=== PATIENT | female | born 1945 | race Caucasian/White ===

== ENCOUNTER 2017-02-22 11:56 | Day surgery (SDC) | payer MEDICARE, OTHER ==
[2017-02-18 16:23] LABS: HEMATOCRIT 44.4 % (36.0-48.0); HEMOGLOBIN 14.4 g/dL (12.0-16.0)
--- NOTE | ~2017-02-22 | OP ---
Record Of Operation [facility] [address] [place]. [address] NAME: SUMMER MONTOYA : 49 STATUS : [facility]#: [id number] AGE: 71 ADM/REG DATE : 02/22/17 MR#: [id number] REPORT SERV DATE: 02/22/17 DICTATED BY: GUS RAMSEY DATE: 02/22/17 REPORT STATUS : Draft TRANSCRIBED BY: ALESSANDRA DATE: 02/22/17 DATE OF PROCEDURE: 02/22/2017 PREOPERATIVE DIAGNOSIS: Dysphagia with cricopharyngeal achalasia. PROCEDURE: Microdirect laryngoscopy with Botox injection into the cricopharyngeus muscle. SURGEON: Gus Ramsey M.D. ANESTHESIA: General endotracheal tube. ESTIMATED BLOOD LOSS: 2 mL. INTRAOPERATIVE FLUIDS: 600 mL. INTRAOPERATIVE FINDINGS: Prominent cricopharyngeal bar with moderate to extensive acid reflux. OPERATIVE PROCEDURE: The patient was identified in the holding room, transported to the operating room. In the operating room, the patient was placed on the operating table in the supine position. Following induction of anesthesia, the patient was intubated without difficulty. The table was turned 90 degrees for the operative procedure. A Dedo laryngoscope was inserted. The scope was positioned for visualization of the cricopharyngeal bar. There was a tremendous amount of acid reflux refluxing into the hypopharynx. This was evacuated with suction. The patient did have a relatively patulous esophagus with reflux accumulating distally within the esophagus. The microscope was positioned for injection into the cricopharyngeus muscle. The botulinum toxin was reconstituted with a concentration of 20 units/mL. 1 mL of solution was injected into the lateral aspect of the cricopharyngeal bar, bilaterally, as well as the central portion, with a resulting injection of 60 units. There was no significant bleeding present at the injection site. The Dedo laryngoscope was removed. The table was returned to its original position and the patient was awakened from anesthesia. The patient was extubated in the operating room and transported to recovery room in good condition. The patient tolerated the procedure well. There were no apparent complications. SUNITHA/ALESSANDRA Gus Ramsey M.D. / [id number] CC: Gus Ramsey M.D. Record Of Operation [address] [address] NAME: SUMMER MONTOYA : 49 STATUS : [facility] PAT#: [id number] AGE: 71 ADM/REG DATE : 02/22/17 MR#: [id number] REPORT SERV DATE: 02/22/17 DICTATED BY: GUS RAMSEY DATE: 02/22/17 REPORT STATUS : Draft TRANSCRIBED BY: MODL DATE: 02/22/17 Marcelle Sandy M.D.
[~2017-02-22 11:56] MED LIST: ADDERALL15 MG PO; B121000P IM; BIOTIN5 MG PO; CIP5 PO; CYMBALTA60 PO; ESTRACE0.5 MG PO; IMITREX100 MG PO; JUICE PLUS PO; KLONO2 PO; NEXIUM40 PO; NORCO1 TA2 PO; PRENAVITE PO; SYMAX-SL0.125 MG SL; TOPAMAX100 PO; VITAMIN C100 MG PO; VITAMIN D1000 UNI1 PO; [UNRECOGNIZED DRUG - CODE] TOP
== END 2017-02-22 17:55 | disposition home or self-care (01) ==
LOC: SDC 11:56
PROVIDERS: Otolaryngology
PROC: 3E0F8GC Introduction of Other Therapeutic Substance into Respiratory Tract, Via Natural or Artificial Opening Endoscopic (ICD-10-PCS; 2017-02-22)
PROC: 3E0F8GC Introduction of Other Therapeutic Substance into Respiratory Tract, Via Natural or Artificial Opening Endoscopic (ICD-10-PCS; principal; 2017-02-22 13:15)
DX: K22.0 Achalasia of cardia (principal); R13.10 Dysphagia, unspecified; T75.3XXA Motion sickness, initial encounter; K21.9 Gastro-esophageal reflux disease without esophagitis; G43.909 Migraine, unspecified, not intractable, without status migrainosus; D64.9 Anemia, unspecified; N60.09 Solitary cyst of unspecified breast; N83.209 Unspecified ovarian cyst, unspecified side; K57.90 Diverticulosis of intestine, part unspecified, without perforation or abscess without bleeding; M19.90 Unspecified osteoarthritis, unspecified site; K22.70 Barrett's esophagus without dysplasia; G25.81 Restless legs syndrome; Z91.040 Latex allergy status; Z98.41 Cataract extraction status, right eye; Z98.42 Cataract extraction status, left eye; Z96.1 Presence of intraocular lens; Z90.710 Acquired absence of both cervix and uterus; Z98.84 Bariatric surgery status; Z90.49 Acquired absence of other specified parts of digestive tract; Z88.8 Allergy status to other drugs, medicaments and biological substances; Z88.1 Allergy status to other antibiotic agents
CPT/HCPCS: 85014; 85018; 93005; A9270-GY; J0585; J2250; J2405; J2710; J3010

== ENCOUNTER 2017-03-01 08:57 | Emergency (ER) | payer MEDICARE, OTHER ==
[2017-03-01 09:15] LABS: BASOPHILS 0.6 %; BASOPHILS ABSOLUTE 0.04 10/3/uL (0.0-0.16); EOSINOPHILS 4.2 %; EOSINOPHILS ABSOLUTE 0.29 10/3/uL (0.0-0.53); ER CBC TAT 0 Hrs 06 MinsNP; HEMATOCRIT 39.3 % (36.0-48.0); HEMOGLOBIN 13.2 g/dL (12.0-16.0); IMMATURE GRANULOCYTES 0.1 %; IMMATURE GRANULOCYTES ABSOLUTE 0.01 10/3/uL (0.0-0.11); LYMPHOCYTES 35.2 %; LYMPHOCYTES ABSOLUTE 2.45 10/3/uL (0.67-4.30); MANUAL DIFF NO %; MEAN CORPUS HGB CONC 33.6 g/dL (32.0-36.0); MEAN CORPUSCULAR HEMOGLOB 33.2 pg (26.0-34.0); MEAN PLATELET VOLUME 9.6 fL (9.2-13.0); MONOCYTES 11.1 %; MONOCYTES ABSOLUTE 0.77 10/3/uL (0.21-1.20); NEUTROPHILS 48.8 %; PLATELET COUNT 169 10/3/uL (150-400); RBC DISTRIBUTION WIDTH 13.1 % (12.0-16.0); RED CELL COUNT 3.97 10/6/uL (4.0-5.6)
[2017-03-01 09:20] LABS: PARTIAL THROMBO TIME 33.4 SEC (22.5-37.2); PROTIME (NOT ORD) 13.3 SEC (12.0-14.5)
[2017-03-01 09:24] LABS: ASCORBIC ACID (UR NOT ORDER) NEG (NEG); BILIRUBIN, URINE NEGATIVE (NEG); KETONE, URINE NEGATIVE (NEG); LEUKOCYTE ESTERASE(NOT OR TRACE (NEG); NITRITE (URINE) POS (NEG); WBC (NOT ORDERED) (RFLEX) 10 (0-5)
[2017-03-01 09:25] LABS: ER URINALYSIS TAT 0 Hrs 36 Mins
[2017-03-01 09:30] LABS: A/G RATIO 1.2 (0.7-1.9); ACETAMINOPHEN LEVEL (TYLENOL) 8.8 MCG/ML (10.0-20.0); ALBUMIN 3.8 G/DL (3.5-5.0); ALKALINE PHOSPHATASE 102 U/L (45-117); CALCIUM, SERUM 8.8 MG/DL (8.5-10.4); CHLORIDE, SERUM 106 MMOL/L (96-112); CO2 (CARBON DIOXIDE) 25 MMOL/L (24-34); CREATININE 1.12 MG/DL (0.55-1.02); GFR AFRICAN AMERICAN 58 ML/MIN (>=60); GFR NON AFRICAN AMERICAN 50 ML/MIN (>=60); GLOBULIN 3.3 G/DL (2.5-4.1); GLUCOSE, SERUM 87 MG/DL (60-99); SGOT(AST) 36 U/L (5-40); SGPT(ALT) 44 U/L (5-65); SODIUM, SERUM 141 MMOL/L (135-148); TOTAL BILIRUBIN 0.5 MG/DL (0-1.2); TOTAL PROTEIN 7.1 G/DL (6.0-8.5); TROPONIN I <0.02 NG/ML (<0.05)
[2017-03-01 09:31] LABS: ALCOHOL < 10 MG/DL (0); BUN (BLOOD UREA NITROGEN) 26 MG/DL (6-23); SALICYLATE < 1.7 MG/DL (-)
[2017-03-01 09:43] LABS: AMPHETAMINES (NOT ORD) POS (NEG); BARBITURATES (NOT ORDERED NEG (NEG); BENZODIAZEPINES (NOT ORD) NEG (NEG); CANNABINOIDS (THC) NEG (NEG); COCAINE (NOT ORDERED) NEG (NEG); OPIATES POS (NEG); PHENCYCLIDINE(PCP) NEG (NEG); TRICYCLICS NEG (NEG)
== END 2017-03-01 11:58 | disposition home or self-care (01) ==
LOC: ER 08:57
PROVIDERS: Emergency Medicine
DX: R41.82 Altered mental status, unspecified (principal); K21.9 Gastro-esophageal reflux disease without esophagitis; Z88.8 Allergy status to other drugs, medicaments and biological substances; Z88.1 Allergy status to other antibiotic agents; Z88.2 Allergy status to sulfonamides; Z88.6 Allergy status to analgesic agent; Z91.040 Latex allergy status; Z79.899 Other long term (current) drug therapy
CPT/HCPCS: 70450; 71010; 74176; 80053; 80305; 80307; 81001; 84484; 85025; 85610; 85730; 93005; 99285